=== PATIENT | female | born 1955 | race Caucasian/White ===

== ENCOUNTER 2017-06-21 16:31 | Outpatient (CLI) | payer BC ==
--- NOTE | 2017-06-21 18:25 | RAD ---
CHEST TWO VIEWS: 06/21/2017 COMPARISON: 06/12/2011 FINDINGS: The heart is normal in size. There is no major pulmonary infiltrate or effusion. The only area wher e there was a slight amount of haziness was just above the right hemidiaphragm, medially, and the rig ht cardiophrenic angle. The findings is marginal at best and could just as easily represent a small fat pad as it could a very minimal infiltrate. The lungs are otherwise clear. The bony structures a re unremarkable. IMPRESSION: Probable negative study. See above. POS: HOME
== END 2017-06-21 16:32 | disposition home or self-care (01) ==
LOC: BURRAD 16:31
PROVIDERS: ATTEND Allergy & Immunology
DX: R05 Cough (principal)
CPT/HCPCS: 71046

== ENCOUNTER 2022-04-24 14:14 | Outpatient (CLI) | payer MEDICARE, OTHER | END 2022-04-24 14:15 | disposition home or self-care (01) | LOC: BURRAD 14:14 | PROVIDERS: ATTEND Family Medicine | DX: M25.562 Pain in left knee (principal) ==

== ENCOUNTER 2022-07-31 11:21 | Outpatient (CLI) | payer MEDICARE, OTHER | END 2022-07-31 11:22 | disposition home or self-care (01) | LOC: BURRAD 11:21 | PROVIDERS: ATTEND Allergy & Immunology | DX: T17.990A Other foreign object in respiratory tract, part unspecified in causing asphyxiation, initial encounter (principal); Y84.4 Aspiration of fluid as the cause of abnormal reaction of the patient, or of later complication, without mention of misadventure at the time of the procedure | CPT/HCPCS: 71046 ==